=== PATIENT | female | born 1975 | race African-American/Black ===

== ENCOUNTER 2017-03-01 05:23 | Emergency (ER) | payer MEDICAID ==
[~2017-03-01] VITALS: Ht 175.3 cm; Wt 118.2 kg
[2017-03-01] MEDS ORDERED: CeFAZolin 1 GM/DEXTROSE 50 ML IV ONE (05:30)
[2017-03-01] MEDS ORDERED: SODIUM CHLORIDE 0.9% 1,000 ML IV ONE (05:30)
[2017-03-01] MEDS ORDERED: TETANUS/DIPHTHERIA TOXOID [ADULT] 0.5 ML SYRINGE IM ONE (05:30)
[2017-03-01 05:41] VITALS: BP 145/75
[2017-03-01] MEDS ORDERED: PERTUSS(ACELL),DIPH,TET VAC/PF 0.5 ML VIAL IM ONE (05:45)
[2017-03-01] MEDS ORDERED: ONDANSETRON HCL 4 MG/2 ML VIAL IVP ONE (06:00)
[2017-03-01] MEDS ORDERED: MORPHINE SULFATE 4 MG/ML SYRINGE IVP ONE (06:00)
== END 2017-03-01 06:12 | disposition short-term general hospital (02) ==
LOC: EMS 05:25
DX: S21.112A Laceration without foreign body of left front wall of thorax without penetration into thoracic cavity, initial encounter (principal); S11.91XA Laceration without foreign body of unspecified part of neck, initial encounter; S01.81XA Laceration without foreign body of other part of head, initial encounter; W26.9XXA Contact with unspecified sharp object(s), initial encounter; Y93.89 Activity, other specified; Y92.89 Other specified places as the place of occurrence of the external cause; Y99.8 Other external cause status
CPT/HCPCS: 71010; 90471; 90715; 96374; 96375; 99285; J0690; J2270; J2405; J7030; 90714

== ENCOUNTER 2017-08-18 00:58 | Emergency (ER) | payer MEDICAID ==
[~2017-08-18] VITALS: Ht 175.3 cm; Wt 118.2 kg
[2017-08-18 04:25] LABS: BASOPHILS % (AUTO) 0.2 % (0.0-2.0); EOSINOPHILS % (AUTO) 0.5 % (1.0-6.0); HEMATOCRIT 38.5 % (36-46); HEMOGLOBIN 12.8 g/dL (12.0-16.0); LYMPHOCYTES # (AUTO) 1.6 K/uL (1.0-4.8); LYMPHOCYTES % (AUTO) 13.2 % (22.0-44.0); MEAN CORPUSCULAR HEMOGLOBIN 27.7 pg (26.0-34.0); MEAN CORPUSCULAR HGB CONC 33.2 G/dL (31.0-37.0); MEAN CORPUSCULAR VOLUME 83 fL (80-100); MONOCYTES # (AUTO) 0.7 K/uL (0.1-1.0); MONOCYTES % (AUTO) 5.9 % (2.0-9.0); NEUTROPHILS # (AUTO) 9.7 K/uL (1.8-7.7); NEUTROPHILS % (AUTO) 80.2 % (40.0-70.0); PLATELET COUNT (AUTO) 272 K/uL (150-450); RED BLOOD CELL COUNT(AUTO) 4.62 MIL/uL (4.00-5.20)
[2017-08-18 04:51] LABS: ANION GAP 5 mmol/L (8-16); CALCIUM, TOTAL 8.5 mg/dL (8.8-10.5); CARBON DIOXIDE 29 mmol/L (22-29); CHLORIDE 105 mmol/L (98-107); CREATININE 0.81 mg/dL (0.60-1.30); GLOMERULAR FILTR. RATE CALC > 60 mL/min (>60); GLUCOSE,RANDOM 125 mg/dL (70-110); POTASSIUM 3.2 mmol/L (3.5-5.1); SODIUM SERUM 139 mmol/L (136-145); UREA NITROGEN, BLOOD 10 mg/dL (7-18)
[2017-08-18 04:57] LABS: ALANINE AMINOTRANSFERASE 21 U/L (12-78); ALBUMIN 3.3 g/dL (3.4-5.0); ALKALINE PHOSPHATASE 79 U/L (46-116); ASPARTATE AMINOTRANSFERASE 12 U/L (15-37); BILIRUBIN,TOTAL 0.3 mg/dL (0.1-1.0); LIPASE 100 U/L (73-393); TOTAL PROTEIN, SERUM 7.1 g/dL (6.4-8.2)
[2017-08-18 05:38] VITALS: BP 132/80
== END 2017-08-18 06:19 | disposition home or self-care (01) ==
LOC: EMS 00:59
DX: K59.00 Constipation, unspecified (principal); N39.0 Urinary tract infection, site not specified; F17.210 Nicotine dependence, cigarettes, uncomplicated
CPT/HCPCS: 74022; 93005; 99285